=== PATIENT | male | born 1990 | race Caucasian/White ===

== ENCOUNTER 2016-09-10 21:24 | Emergency (ER) | payer OTHER ==
[~2016-09-10] VITALS: Ht 185.4 cm; Wt 100.0 kg
[2016-09-10 21:30] VITALS: BP 135/89; PULSE 87; RESP 20; TEMP 99.4; O2SAT 97
[2016-09-10] MEDS ORDERED: CYCLOBENZAPRINE HCL 10 MG TAB PO ONE (21:45)
[2016-09-10] MEDS ORDERED: KETOROLAC TROMETHAMINE 30 MG/ML (IVP) VIAL IV PUSH ONE (21:45)
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
[2016-09-10] MEDS ORDERED: IOHEXOL 350 MG/ML 10 ML VIAL (for RAD DIAG) IV ONE (22:23)
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
[2016-09-10 22:44] LABS: AUTOMATED NEUTROPHIL # 4.7 TH/MM3 (1.8-7.7); BASOPHIL % 0.4 % (0.0-2.0); EOSINOPHIL # 0.1 TH/MM3 (0-0.4); EOSINOPHIL % 0.7 % (0.0-4.0); HEMATOCRIT 41.1 % (39.0-51.0); HEMO FLAGS DIFF FINAL; LYMPH % 30.3 % (9.0-44.0); LYMPHOCYTE # 2.3 TH/MM3 (1.0-4.8); MEAN CELL VOLUME 83.4 FL (80.0-100.0); MEAN CORPUSCULAR HEMOGLOBIN 27.3 PG (27.0-34.0); MEAN CORPUSCULAR HGB CONC 32.8 % (32.0-36.0); MONO % 5.2 % (0.0-8.0); NEUT % 63.4 % (16.0-70.0); PLATELET COUNT 204 TH/MM3 (150-450); RED BLOOD COUNT 4.93 MIL/MM3 (4.50-5.90); RED CELL DISTRIBUTION WIDTH 12.9 % (11.6-17.2); WHITE BLOOD COUNT 7.4 TH/MM3 (4.0-11.0)
[2016-09-10 22:55] VITALS: BP 129/71; PULSE 69; RESP 18; O2SAT 100
[2016-09-10 23:04] LABS: ALKALINE PHOSPHATASE 46 U/L (45-117); ALT (GPT) 36 U/L (12-78); ANION GAP 9 MEQ/L (5-15); AST (GOT) 31 U/L (15-37); BLOOD UREA NITROGEN 14 MG/DL (7-18); CHLORIDE 103 MEQ/L (98-107); GLOMERULAR FILTRATION RATE 65 ML/MIN (>89); SODIUM (NA) 139 MEQ/L (136-145); TOTAL BILIRUBIN ADULT 0.3 MG/DL (0.2-1.0)
[2016-09-10] MEDS ORDERED: CYCL1TAB29 PO (23:08)
[2016-09-10] MEDS ORDERED: IBUP-232 PO (23:08)
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
== END 2016-09-10 23:25 | disposition home or self-care (01) ==
LOC: NEPD 21:24
DX: M25.551 Pain in right hip (principal); M79.604 Pain in right leg; R10.31 Right lower quadrant pain; V59.40XA Driver of pick-up truck or van injured in collision with unspecified motor vehicles in traffic accident, initial encounter
CPT/HCPCS: 71020; 72170; 73552; 74177; 80053; 85025; 96374; 99284; J1885; Q9967